=== PATIENT | male | born 1950 | race Caucasian/White ===

== ENCOUNTER 2017-04-14 10:59 | Emergency (ER) | payer MEDICARE, BC ==
[~2017-04-14] VITALS: Ht 182.9 cm; Wt 106.6 kg
[~2017-04-14 10:59] MED LIST: BENADRYL 25MG C25 MG PO; KEFLEX 500MG.500 MG PO; LIPITOR20 M1 PO; LOTREL 10 MG-201 CAP PO; PREDNISONE 20MG20 MG PO; PRILOSEC20 MG PO; REGLAN 10 MG TA10 MG PO; ULTRAM50 MG PO
--- OUTSIDE RECORDS SUMMARY | 2017-04-14 11:08 | External Medical Summary Rpt | CCD ---
Author Author , IVORY VICTORIA Address Unknown Phone [email or web address] Immunization Name Date Rout CVX Reac Dose Comm Prov Is Faci e tion ent ider Refu lity Give sed n Infl 10-1 150 999 Hist D203 No D203 uenz 3-20 oric 45 45 a 16 al Quad Info Inj rmat ion - Sour ce Unsp ecif ied
--- OUTSIDE RECORDS SUMMARY | 2017-04-14 11:08 | External Medical Summary Rpt | CCD ---
Author Author Conduent Organization Conduent Address Unknown Phone Unavailable Purpose Continuity of Care Document - through 2016
--- OUTSIDE RECORDS SUMMARY | 2017-04-14 11:08 | External Medical Summary Rpt | CCD ---
Author Author , ESME VICTORIA Address Unknown Phone [email or web address] Care Team Providers Care Trim Technician Name Role Phone Sreedhar Ridley MD, Unavailable Unavailable Sreedhar Ridley MD Purpose Continuity of Care Document - 08-23-2012 through 2016 Problems Code Diagnosis DOS Provider Status 935.1 935.1 05-09-2013 [place] [facility] ESOPHAGUS 380.10 380.10 08-23-2012 [facility] OTITIS [facility] EXTERNA NOS Allergies, Adverse Reactions, Alerts Type Drug Allergy Adverse Reaction to Substance Substance Reaction Severity Morphine Unknown Unknown Medications Na ND Rx Da Fi Fi Am Da Di Ph RX Ph St me C No te ll ll ou ys ag ar # ys at rm s nt no ma ic us Or Da si cy ia de te s n re d KE 00 04 0 No TO 40 -0 RO 93 7- Lo LA 79 20 ng C 50 13 er 30 1 Ac MG ti /M ve L AL Me 00 04 0 No th 00 -0 yl 90 7- Lo pr 19 20 ng ed 00 13 er ni 9 so Ac lo ti ne ve So d Wen cc in a AN 24 04 0 No TI 20 -0 PY 80 7- Lo RI 56 20 ng NE 16 13 er -B 2 EN Ac ZO ti CA ve IN E EA R DR OP NE 24 04 0 No OM 20 -0 YC 80 7- Lo IN 63 20 ng -P 56 13 er OL 2 YM Ac YX ti IN ve -H C EA R WEN SP Sa 63 04 0 No li 80 -0 ne 70 7- Lo 10 20 ng Fl 07 13 er us 5 h Ac 10 ti ML ve Sy ri ng e CE 00 04 0 No FT 40 -0 RI 97 7- Lo AX 33 20 ng ON 30 13 er E 4 1 Ac GM ti ve AL So 00 04 0 No d 07 -0 Ch 47 7- Lo lo 10 20 ng ri 11 13 er de 3 Ac 0. ti 9% ve 50 ML Ad v Vital Signs 05-09-2013 04:29 Name Value Interpretat Reference Comment ion Range Body 98.7 [degF] Temperature BP 76 mm[Hg] Diastolic BP Systolic 134 mm[Hg] Heart 65 /min Rate/Pulse O2% 96 % Respiratory 20 /min Rate 05-09-2013 04:03 Name Value Interpretat Reference Comment ion Range BP 82 mm[Hg] Diastolic BP Systolic 124 mm[Hg] Heart 65 /min Rate/Pulse O2% 96 % Respiratory 20 /min Rate 08-23-2012 08:42 Name Value Interpretat Reference Comment ion Range BP 63 mm[Hg] Diastolic BP Systolic 123 mm[Hg] Heart 65 /min Rate/Pulse O2% 97 % Respiratory 20 /min Rate 08-23-2012 08:13 Name Value Interpretat Reference Comment ion Range BP 65 mm[Hg] Diastolic BP Systolic 129 mm[Hg] Heart 78 /min Rate/Pulse O2% 98 % Respiratory 20 /min Rate Results Labs Lab Lab Date Result Refere Interp Status Commen Order Detail nces retati t Range on COMPREHENSIVE METABOLIC PANEL (05-09-2013 04:30) Glucose 119 74-106 complet 013 mg/dL ed Bld-mCn 04:30 c BUN 11 7-18 complet Bld-mCn 013 mg/dL ed c 04:30 Creat 1.1 0.8-1.3 complet SerPl-m 013 mg/dL ed Cnc 04:30 Creat 113 50-200 complet Cl 013 ML/MIN ed predict 04:30 ed SerPl C-G-vRa te GFR/BSA 68 Greater complet .pred 013 ML/MIN than ed SerPl 04:30 60 Schwart z-vRate Sodium 142 136-145 complet SerPl-s 013 mmoL/L ed Cnc 04:30 Potassi 3.9 3.5-5.1 complet um 013 mmoL/L ed SerPl-s 04:30 Cnc Chlorid 104 98-107 complet e 013 mmoL/L ed SerPl-s 04:30 Cnc CO2 25 21.0-32 complet SerPl-s 013 mmoL/L .0 ed Cnc 04:30 Calcium 12-22-2 8.5 8.5-10. complet 013 mg/dL 1 ed SerPl-m 04:30 Cnc Prot 22-2 7.2 6.4-8.2 complet SerPl-m 013 gm/dL ed Cnc 04:30 Albumin 05-09-2 4.1 3.4-5.0 complet 013 gm/dL ed SerPl-m 04:30 Cnc Globuli 05-09-2 3.1 1.3-3.2 complet n 013 gm/dL ed Ser-mCn 04:30 c Albumin 05-09-2 1.3 UNK 1.1-1.8 complet /Glob 013 ed SerPl-m 04:30 Rto Bilirub 05-09-2 0.9 0.2-1.0 complet 013 mg/dL ed SerPl-m 04:30 Cnc AST 05-09-2 21 U/L 15-37 complet SerPl-c 013 ed Cnc 04:30 ALT 05-09-2 55 U/L 30-65 complet SerPl-c 013 ed Cnc 04:30 ALP 05-09-2 118 U/L 50-136 complet SerPl-c 013 ed Cnc 04:30 CBC with AUTO DIFF (05-09-2013 04:30) WBC # -22-2 6.9 4.8-10. complet Bld 013 K/MM3 8 ed Auto 04:30 RBC # 22-2 5.56 4.6-6.2 complet Bld 013 M/mm3 ed Auto 04:30 Hgb 05-09-2 17.4 14.1-18 complet Bld-mCn 013 g/dL .0 ed c 04:30 Hct Fr 05-09-2 48.7 % 42.0-52 complet Bld 013 .0 ed 04:30 MCV RBC 05-09-2 87.5 fl 82.2-97 complet 013 .8 ed 04:30 MCH RBC 05-09-2 31.4 pg 27-31.2 complet Qn 013 ed Auto 04:30 MEAN 05-09-2 35.9 31.8-35 complet CORPUSC 013 g/dl .4 ed ULAR 04:30 HGB CONC RDW RBC 05-09-2 14.9 % 11.5-17 complet Auto 013 .5 ed 04:30 Platele 12-22-2 220 142-424 complet t Bld 013 K/mm3 ed Ql 04:30 Manual MEAN 12-22-2 8.0 fl 7.4-10. complet PLATELE 013 4 ed T 04:30 VOLUME Granulo 12-22-2 67.3 % 37.0-80 complet cytes 013 .0 ed Fr Bld 04:30 Auto LYMPH % 12-22-2 22.6 % 10-50 complet 013 ed 04:30 Monocyt 12-22-2 8.2 % 1.7-9.3 complet es Fr 013 ed Bld 04:30 Auto Eosinop 12-22-2 1.5 % 0.1-12. complet hil Fr 013 0 ed Bld 04:30 Auto Basophi 12-22-2 0.4 % 0.1-2.0 complet ls Fr 013 ed Bld 04:30 Auto Granulo 12-22-2 4.7 1.3-8.0 complet cytes # 013 K/mm3 ed Bld 04:30 Auto Lymphoc 12-22-2 1.6 0.7-4.5 complet ytes Fr 013 K/mm3 ed Bld 04:30 Auto Monocyt 12-22-2 0.6 0.1-1.0 complet es # 013 K/mm3 ed Bld 04:30 Auto Eosinop 12-22-2 0.1 0.0-0.4 complet hil # 013 K/mm3 ed Bld 04:30 Auto Basophi 12-22-2 0.0 0-0.2 complet ls # 013 K/MM3 ed Bld 04:30 Auto Encounters Encounter Start End Date Code Location Performer Type Date Emergency BEVERLY Ridley MD (ER) 3 03:22 3 04:[address] [facility] Emergency BEVERLY Ridley MD (ER) 3 07:03 3 08:[address] [facility]
--- OUTSIDE RECORDS SUMMARY | 2017-04-14 11:08 | External Medical Summary Rpt ---
Author Author ESME Rosenberg, [employer] Organization [employer] Address Unknown Phone Unavailable
--- OUTSIDE RECORDS SUMMARY | 2017-04-14 11:08 | External Medical Summary Rpt | CCD ---
Author Author , ESME VICTORIA Address Unknown Phone [email or web address] Care Team Providers Care Auditor Tax Name Role Phone Sreedhar Ridley MD, Unavailable Unavailable Sreedhar Ridley MD Purpose Continuity of Care Document - 08-23-2012 through 2016 Problems Code Diagnosis DOS Provider Status 935.1 935.1 05-09-2013 [place] [facility] ESOPHAGUS 380.10 380.10 08-23-2012 [facility] OTITIS [facility] EXTERNA NOS Allergies, Adverse Reactions, Alerts [...] Ridley MD (ER) 3 03:22 3 04:30 [facility] Emergency BEVERLY Ridley MD (ER) 3 07:03 3 08:42 [facility]
--- OUTSIDE RECORDS SUMMARY | 2017-04-14 11:08 | External Medical Summary Rpt | CCD ---
Author Author , IVORY VICTORIA Address Unknown Phone [email or web address] Immunization Name Date Rout CVX Reac Dose Comm Prov Is Faci e tion ent ider Refu lity Give sed n Infl 10-1 150 999 Hist D203 No D203 uenz 3-20 oric 45 45 a 16 al Quad Info Inj rmat ion - Sour ce Unsp ecif ied
--- NOTE | 2017-04-14 12:01 | Urgent Treatment Center Report ---
History of Present Issue Date/Time Seen by Provider 04/14/17 1143 Visit Reason Pt arrived:Walked Presenting Problem:PT HAS BOIL ON LEFT SIDE OF HIS FACE NEAR HIS EYE Location if Accident: Onset of symptoms date/time:/ or onset unknown for:MEDICAL HX UNKNOWN Have you (or family members/close friends) recently traveled outside the [place]? N If Yes, where/when: Have you had exposure to infectious disease within the past month? TB? Other? Specify: Patient state that he noticed a pimple like area right beside his left eye. State that he thought it was a pimple and he began mashing on it but then yesterday it started to swell up. State that today it is sore and he seen a little puss come out of it and he was worried that it may be an abcess ALLERGIES Coded Allergies: MDX - Morphine (Morphine) (NA-NAUSEA/VOMITING 05/09/13) Converted from Ingredient Allergy: Morphine Home Medications Reported Medications Amlodipine Besylate/Benazepr (Lotrel 10 Mg-20 Mg) 1 CAP PO DAILY Atorvastatin Calcium (Lipitor) 20 MG PO QHS History Medical History General Angina: No NC: No Hypertension? Yes Hyperlipidemia? Yes CHF? No DVT? No PE? No COPD? No Asthma? No Anemia? No GERD? No Gastric ulcers? No GI Bleed? No Hernia? Yes Thyroid Problems? No Hypothyroidism? No CVA? No Seizures? No Diabetes? No UTI? No Stones? Yes BPH? No GB Disease: No Asplenia? No Hepatitis? No Sickle Cell Disease? No Migraines? No Cataracts? No Glaucoma? No MRSA? No HIV? No TB? No Anxiety? No Depression? No Cancer? No More? No Immunization HX DT/Tetanus 1-4 YRS Flu NEVER Pneumonia NEVER Surgical Hx Previous Surgery?Y Hernia Family History Family HX Diabetes No CAD No Hypertension Yes Hyperlipidemia Yes Cancer Yes TB No Social History Smoking Hx Smoker: Never Smoker Tobacco: No Packs/day N/A Alcohol Alcohol: No Review of Systems All Other Systems Reviewed and Negative Eyes glasses, denies no symptoms reported, denies see HPI, denies blurred vision, denies drainage, denies decreased acuity, denies foreign body sensation, denies inflammation, denies pain, denies photophobia, denies vision change Physical Exam Vital Signs Vital Signs Date Time Temp Pulse Resp B/P Pulse O2 O2 Flow FiO2 Ox Delivery Rate 11/27 1123 98.1 52 20 147/87 99 General Appearance normal appearance, WD/WN, no apparent distress Eye Exam - left eye other, bilateral eye normal exam (boil beside left eye area), bilateral eye PERRL, bilateral eye EOMI Respiratory Status Yes: trachea midline, chest symmetrical, non tender chest. No: respiratory distress. Lung Sounds bilateral: normal breath sounds, lungs clear. Cardiovascular normal exam, regular rate/rhythm, no peripheral edema Neurologic alert, normal exam, oriented x 3 Comments Red raised inflammed area on left rastafari area just beside of his left eye denies vison disturbances state that area sore, Scab noted on area removed and able to get small amount of drainage to send for culture Medical Decision Making LABS/Meds/Orders Pt receiving controlled substance in ED? No Results/Orders Orders Procedure Date/time Status CULTURE, WOUND 04/14 1211 Active Progress [facility] Progress Notes Comment Called Dr River and had him paged, [facility] and discussed patient with them, advised have him come straight down to his office and he would assess him and treat accordiningly or refer as needed, advise them that we was able to get a sample of drainage and if they would want us to write the antibiotic or him and he advised that he would see paitent and write the antibiotic accordingly. Dr River called back and agreed with sending paitent to Dr Neumann due to location of area with eye Departure Departure Time of Disposition 1203 Disposition DC Home or Self Care(routine) Clinical Impression Primary Impression: Boil Secondary Impressions: Abscess Condition STABLE Referrals Dr Oren Neumann Go straight to the office after leaving here Carlo Maharaj MD (Family) Patient Instructions Boviraj, DI for Boils Additional Instructions GO Straight to Dr Neumann office Return if needed Discharge Counseling Counseled pt/family regarding diagnosis, follow up needs Comments Patient advised that Dr Neumann was his eye doctor and he knew where to go and would go straight there after leaving the clinic at 1213
--- NOTE | 2017-04-14 12:01 | Urgent Treatment Center Report ---
History of Present Issue Date/Time Seen by Provider 04/14/17 1143 Visit Reason Pt arrived:Walked Presenting Problem:PT HAS BOIL ON LEFT SIDE OF HIS FACE NEAR HIS EYE Location if Accident: Onset of symptoms date/time:/ or onset unknown for:MEDICAL HX UNKNOWN Have you (or family members/close friends) recently traveled outside the [place]? N If Yes, where/when: Have you had exposure to infectious disease within the past month? TB? Other? Specify: Patient state that he noticed a pimple like area right beside his left eye. State that he thought it was a pimple and he began mashing on it but then yesterday it started to swell up. State that today it is sore and he seen a little puss come out of it and he was worried that it may be an abcess ALLERGIES Coded Allergies: MDX - Morphine (Morphine) (NA-NAUSEA/VOMITING 05/09/13) Converted from Ingredient Allergy: Morphine Home Medications Reported Medications Amlodipine Besylate/Benazepr (Lotrel 10 Mg-20 Mg) 1 CAP PO DAILY Atorvastatin Calcium (Lipitor) 20 MG PO QHS History Medical History General Angina: No MA: No Hypertension? Yes Hyperlipidemia? Yes CHF? No DVT? No PE? No COPD? No Asthma? No Anemia? No GERD? No Gastric ulcers? No GI Bleed? No Hernia? Yes Thyroid Problems? No Hypothyroidism? No CVA? No Seizures? No Diabetes? No UTI? No Stones? Yes BPH? No GB Disease: No Asplenia? No Hepatitis? No Sickle Cell Disease? No Migraines? No Cataracts? No Glaucoma? No MRSA? No HIV? No TB? No Anxiety? No Depression? No Cancer? No More? No Immunization HX DT/Tetanus 1-4 YRS Flu NEVER Pneumonia NEVER Surgical Hx Previous Surgery?Y Hernia Family History Family HX Diabetes No CAD No Hypertension Yes Hyperlipidemia Yes Cancer Yes TB No Social History Smoking Hx Smoker: Never Smoker Tobacco: No Packs/day N/A Alcohol Alcohol: No Review of Systems All Other Systems Reviewed and Negative Eyes glasses, denies no symptoms reported, denies see HPI, denies blurred vision, denies drainage, denies decreased acuity, denies foreign body sensation, denies inflammation, denies pain, denies photophobia, denies vision change Physical Exam Vital Signs Vital Signs Date Time Temp Pulse Resp B/P Pulse O2 O2 Flow FiO2 Ox Delivery Rate 11/27 1123 98.1 52 20 147/87 99 General Appearance normal appearance, WD/WN, no apparent distress Eye Exam - left eye other, bilateral eye normal exam (boil beside left eye area), bilateral eye PERRL, bilateral eye EOMI Respiratory Status Yes: trachea midline, chest symmetrical, non tender chest. No: respiratory distress. Lung Sounds bilateral: normal breath sounds, lungs clear. Cardiovascular normal exam, regular rate/rhythm, no peripheral edema Neurologic alert, normal exam, oriented x 3 Comments Red raised inflammed area on left holiness area just beside of his left eye denies vison disturbances state that area sore, Scab noted on area removed and able to get small amount of drainage to send for culture Medical Decision Making LABS/Meds/Orders Pt receiving controlled substance in ED? No Results/Orders Orders Procedure Date/time Status CULTURE, WOUND 04/14 1211 Active Progress [facility] Progress Notes Comment Called Dr River and had him paged, [facility] and discussed patient with them, advised have him come straight down to his office and he would assess him and treat accordiningly or refer as needed, advise them that we was able to get a sample of drainage and if they would want us to write the antibiotic or him and he advised that he would see paitent and write the antibiotic accordingly. Dr River called back and agreed with sending paitent to Dr Neumann due to location of area with eye Departure Departure Time of Disposition 1203 Disposition DC Home or Self Care(routine) Clinical Impression Primary Impression: Boil Secondary Impressions: Abscess Condition STABLE Referrals Dr Oren Neumann Go straight to the office after leaving here Carlo Maharaj MD (Family) Patient Instructions Boviraj, DI for Boils Additional Instructions GO Straight to Dr Neumann office Return if needed Discharge Counseling Counseled pt/family regarding diagnosis, follow up needs Comments Patient advised that Dr Neumann was his eye doctor and he knew where to go and would go straight there after leaving the clinic at 1213
[2017-04-14 12:14] VITALS: BP 143/85
== END 2017-04-14 12:14 | disposition home or self-care (01) ==
LOC: UTC 10:59
DX: H05.012 Cellulitis of left orbit (principal); I10 Essential (primary) hypertension; E78.5 Hyperlipidemia, unspecified; Z88.6 Allergy status to analgesic agent